=== PATIENT | male | born 1975 | race Caucasian/White ===

== ENCOUNTER 2018-11-04 00:53 | Emergency (ER) | payer OTHER ==
[~2018-11-04] VITALS: Ht 165.1 cm; Wt 63.5 kg
[~2018-11-04 00:53] MED LIST: [UNRECOGNIZED DRUG - REMARK]
[2018-11-04 01:03] VITALS: BP 106/70
[2018-11-04] MEDS ORDERED: TRAM50TA PO (01:27)
--- NOTE | 2018-11-04 01:27 | PHYS DOC ---
Past Medical History Past Medical History: Other Additional Past Medical Histor: "dopamine dystonia" Past Surgical History: Cholecystectomy Alcohol Use: None Drug Use: None Adult General Chief Complaint Chief Complaint: PAIN CONTROL HPI HPI Patient is a 43-year-old male who presents with complaint of pain all over his body. 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 He states that he has been going without his pain medication for 3 days and is no longer able to tolerated. Patient states that usually when he goes into the emergency room they just give him a shot of Dilaudid and a week's worth of his pain pills until he can get into see his primary again. Patient denies any recent injuries or acute changes to his pain. He denies any chest pain, shortness of breath or fever. Review of Systems Review of Systems Constitutional: Denies fever or chills [] Respiratory: Denies cough or shortness of breath [] Cardiovascular: No additional information not addressed in HPI [] GI: Denies abdominal pain, nausea, vomiting or diarrhea [] : Denies dysuria or hematuria [] Musculoskeletal: Complains of diffuse body pains [] Current Medications Current Medications Current Medications Medications (Trade) Dose Ordered Sig/Rancho Start Time Stop Time Status Last Admin Dose Admin Tramadol HCl (Ultram) 50 mg 1X ONCE 11/04/18 01:30 11/04/18 01:32 DC Allergies Allergies Allergies Coded Allergies Type Severity Reaction Last Updated Verified No Known Drug Allergies 11/17/15 No Physical Exam Physical Exam Constitutional: Well developed, well nourished, no acute distress, non-toxic appearance. [] Neck: Normal range of motion, no tenderness, supple, no stridor. [] Cardiovascular: Regular rate and rhythm[] Lungs & Thorax: Bilateral breath sounds clear to auscultation [] Extremities: No tenderness, no cyanosis, no clubbing, ROM intact, no edema. [] Neurologic: Alert and oriented X 3, no focal deficits noted. [] Current Patient Data Vital Signs Vital Signs Date Time Temp Pulse Resp B/P (MAP) Pulse Ox O2 Delivery O2 Flow Rate FiO2 11/04/18 01:03 97.9 109 20 98 Room Air 97.9 EKG EKG [] Radiology/Procedures Radiology/Procedures [] Course & Med Decision Making Course & Med Decision Making Pertinent Labs and Imaging studies reviewed. (See chart for details) Upon evaluation of patient, patient was informed that we do not treat chronic pain in the emergency room and that he will need to see his primary care provider to have his Percocet refilled. Patient was offered a dose of tramadol and prescription for tramadol at which point he became very irate and told nurse that tramadol is a fing joke. When informed that he would not be receiving a shot of Dilaudid and prescription for Percocet, patient stated that this is the only hospital that he has a problem with getting the pain medicine that he needs and he will just act as if he never came here and go to a different emergency room for the pain medication. Dragon Disclaimer Dragon Disclaimer This electronic medical record was generated, in whole or in part, using a voice recognition dictation system. Departure Departure Impression: Primary Impression: Chronic pain Additional Impression: Drug-seeking behavior Disposition: 01 HOME, SELF-CARE Condition: STABLE Referrals: UNKNOWN PCP NAME (PCP) Patient Instructions: Chronic Pain Scripts Tramadol Hcl (TRAMADOL HCL) 50 Mg Tablet 50 MG PO Q6HRS PRN for PAIN, #10 TAB Prov: GENIA KIM Jr. DO 11/04/18 Problem Qualifiers Primary Impression: Chronic pain Chronic pain type: other chronic pain Qualified Codes: G89.29 - Other chronic pain GENIA KIM Jr. DO Nov 04, 2018 01:27
[2018-11-04] MEDS ORDERED: traMADol 50 MG TABLET PO ONE (01:30)
== END 2018-11-04 01:40 | disposition home or self-care (01) ==
LOC: ER 00:53
DX: G89.29 Other chronic pain (principal); Z76.5 Malingerer [conscious simulation]; M79.10 Myalgia, unspecified site
CPT/HCPCS: 99283